=== PATIENT | female | born 1995 | race Caucasian/White ===

== ENCOUNTER 2022-10-29 08:00 | Outpatient (CLI) | payer OTHER ==
[2022-10-29 15:35] LABS: BILIRUBIN,URINE NEGATIVE (NEGATIVE); GLUCOSE, URINE (UA) NEGATIVE (NEGATIVE); KETONES,URINE (UA) NEGATIVE (NEGATIVE); LEUKOCYTE ESTERASE, URINE NEGATIVE (NEGATIVE); NITRITE,URINE NEGATIVE (NEGATIVE); OCCULT BLOOD,URINE NEGATIVE (NEGATIVE); PROTEIN,URINE NEGATIVE (NEGATIVE); UROBILINOGEN,URINE 0.2 (NORMAL) E.U./dL (NORMAL)
[2022-10-29 15:45] LABS: CLARITY,URINE CLEAR (CLEAR)
[2022-10-29 15:59] LABS: WBC,URINE 0-3 /HPF (0-5)
[2022-10-29 16:00] LABS: BACTERIA,URINE None Seen /HPF (None Seen); RBC,URINE 0-5 /HPF (0-5); SQUAMOUS EPITHELIAL CELL,UR MOD Squamous (<= Few)
== END 2022-10-29 23:59 | disposition home or self-care (01) ==
LOC: LAB 08:00
PROVIDERS: ATTEND Obstetrics & Gynecology
DX: Z34.90 Encounter for supervision of normal pregnancy, unspecified, unspecified trimester (principal)
CPT/HCPCS: 81001; 87086

== ENCOUNTER 2022-11-27 12:30 | Outpatient (CLI) | payer OTHER ==
[2022-11-27 15:31] LABS: BASOPHILS % (AUTO) 0.5 %; EOSINOPHILS # (AUTO) 0.1 10^3/uL (0.0-0.7); EOSINOPHILS % (AUTO) 0.7 %; HGB - HEMOGLOBIN 13.1 g/dL (12.0-16.0); LYMPHOCYTES % (AUTO) 23.2 %; MEAN CORPUSCULAR HGB CONC 34.5 g/dL (32.0-36.0); MEAN CORPUSCULAR VOLUME 92.9 fL (81.0-99.0); MEAN PLATELET VOLUME 10.3 fL (7.9-10.8); MONOCYTES # (AUTO) 0.8 10^3/uL (0.0-1.0); MONOCYTES % (AUTO) 9.7 %; NEUTROPHILS # (AUTO) 5.5 10^3/uL (1.5-6.6); NEUTROPHILS % (AUTO) 65.5 %; PLT - PLATELET COUNT 220 10^3/uL (130-450); RED BLOOD COUNT 4.09 10^6/uL (4.20-5.40); RED CELL DISTRIBUTION WIDTH 11.4 % (12.0-15.0); WHITE BLOOD COUNT 8.4 x10^3/uL (4.8-10.8)
[2022-11-28 08:10] LABS: VARICELLA-ZOSTER AB IGG 210 index (Immune >165)
[2022-11-29 01:07] LABS: HBsAG SCREEN Negative (Negative); HCV AB Non Reactive (Non Reactive)
[2022-11-29 05:10] LABS: HIV SCREEN 4TH GENERATION Non Reactive (Non Reactive)
[2022-11-29 06:10] LABS: RPR Non Reactive (Non Reactive)
== END 2022-11-27 12:31 | disposition home or self-care (01) ==
LOC: LAB 12:30
PROVIDERS: ATTEND Nurse Practitioner Obstetrics & Gynecology
DX: Z36.89 Encounter for other specified antenatal screening (principal)
CPT/HCPCS: 36415; 81220; 85025; 86592; 86762; 86787; 86803; 86850; 86900; 86901; 87340; 87389

== ENCOUNTER 2023-01-31 13:45 | Outpatient (CLI) | payer OTHER ==
--- NOTE | 2023-02-01 13:08 | Ultrasound Report ---
PROCEDURE: OB Detailed Eval INDICATIONS: SUPERVISION OF OUTSIDE/PRIOR DATING DATA: Last menstrual period (LMP): 09/11/2022. LMP-based estimated date of delivery (EVE): 06/18/2010 23. First dating scan (date and location): 11/07/2022 at [facility]. Estimated date of delivery (EVE) from first dating scan: 06/16/2023. The below data below was generated using the working EVE of 06/16/2023 TECHNIQUE: Real-time scanning was performed of the fetus, with image documentation and biometric measurements. COMPARISON: OB Ultrasound. 11/07/2022. FINDINGS: General: A single living intrauterine gestation is present. Presentation: Cephalic Placenta: Placental position is anterior, without previa. Amniotic fluid index: 15.3 cm; largest pocket 5.0 cm. heart rate: 147 beats per minute. Maternal cervical canal: 4.7 cm long; normal length is 2.5 cm or more. biometrics: Biparietal diameter: 20 weeks 4 days Head circumference: 20 weeks 3 days Abdominal circumference: 20 weeks 3 days Femur length: 20 weeks 4 days Estimated gestational age from initial scan: 20 weeks 4 days. Composite gestational age from present scan: 20 weeks 4 days Estimated weight and percentile: 357 g; 40.2% Measurement variability in biometric dating: +/- 10 days from 12-20 weeks gestation, +/- 2 weeks from 20-30 weeks gestation, +/- 3 weeks at 30 weeks gestation or later. Anatomic survey: Neuro: Ventricles are normal at less than 10 mm. Cisterna magna is normal at 3-11 mm. Cerebellum i s normal in size and morphology. Nuchal skin fold: Normal at less than 6 mm between 14 and 20 weeks gestational age. Face: Nose and lips, facial profile are normal. Spine: No evidence for spina bifida. Heart: 4-chambered heart is present, with normal ventricular outflow tracts. Diaphragm: Diaphragm is intact. Stomach: Left-sided stomach is present. Kidneys: No hydronephrosis. Normal is less than 5 mm in 2nd trimester, less than 7 mm in 3rd trimester. Cord: 3 vessel cord has orthotopic insertion. Bladder: Normal in size. Extremities: All 4 extremities are visualized. IMPRESSION: 1. A single living IUP with appropriate interval growth. 2. Normal anatomic survey. 3. KEREN 15.3 cm. 4. The estimated weight is 40% for gestational age. Reviewed by: Mine Bishop MD on 02/01/2023 1:07 PM PDT Approved by: Mine Bishop MD on 02/01/2023 1:07 PM PDT Station ID: [id number]
== END 2023-01-31 13:46 | disposition home or self-care (01) ==
LOC: DI 13:45
PROVIDERS: ATTEND Nurse Practitioner Obstetrics & Gynecology
DX: Z34.02 Encounter for supervision of normal first pregnancy, second trimester (principal); Z36.89 Encounter for other specified antenatal screening

== ENCOUNTER 2023-03-15 12:26 | Outpatient (CLI) | payer OTHER ==
[2023-03-15 13:42] LABS: HCT - HEMATOCRIT 29.3 % (37.0-47.0); HGB - HEMOGLOBIN 10.2 g/dL (12.0-16.0); MEAN CORPUSCULAR HEMOGLOBIN 31.6 pg (27.0-31.0); MEAN CORPUSCULAR HGB CONC 34.8 g/dL (32.0-36.0); MEAN CORPUSCULAR VOLUME 90.7 fL (81.0-99.0); MEAN PLATELET VOLUME 9.7 fL (7.9-10.8); RED BLOOD COUNT 3.23 10^6/uL (4.20-5.40); RED CELL DISTRIBUTION WIDTH 12.3 % (12.0-15.0); WHITE BLOOD COUNT 11.9 x10^3/uL (4.8-10.8)
== END 2023-03-15 12:27 | disposition home or self-care (01) ==
LOC: LAB 12:26
PROVIDERS: ATTEND Nurse Practitioner Obstetrics & Gynecology
DX: Z36.9 Encounter for antenatal screening, unspecified (principal)
CPT/HCPCS: 36415; 82950; 85027

== ENCOUNTER 2023-03-22 15:32 | Outpatient (CLI) | payer OTHER ==
[2023-03-22] MEDS ORDERED: FERRIC GLUCONATE 125 MG in SODIUM CHLORIDE 0.9% 100ML 100 ML IV ONE (16:00)
[2023-03-22 17:22] VITALS: BP 100/63
== END 2023-03-22 17:17 | disposition home or self-care (01) ==
LOC: WFO 15:32 → FBP 15:33 → WFO 17:17
PROVIDERS: ATTEND Nurse Practitioner Obstetrics & Gynecology
DX: O99.013 Anemia complicating pregnancy, third trimester (principal); Z3A.00 Weeks of gestation of pregnancy not specified
CPT/HCPCS: 96365; J2916

== ENCOUNTER 2023-04-19 11:35 | Outpatient (CLI) | payer OTHER ==
[2023-04-19 11:52] LABS: HCT - HEMATOCRIT 30.8 % (37.0-47.0); HGB - HEMOGLOBIN 10.6 g/dL (12.0-16.0); MEAN CORPUSCULAR HEMOGLOBIN 31.1 pg (27.0-31.0); MEAN CORPUSCULAR HGB CONC 34.4 g/dL (32.0-36.0); MEAN CORPUSCULAR VOLUME 90.3 fL (81.0-99.0); MEAN PLATELET VOLUME 9.8 fL (7.9-10.8); RED BLOOD COUNT 3.41 10^6/uL (4.20-5.40); RED CELL DISTRIBUTION WIDTH 12.3 % (12.0-15.0)
== END 2023-04-19 11:36 | disposition home or self-care (01) ==
LOC: LAB 11:35
PROVIDERS: ATTEND Nurse Practitioner Obstetrics & Gynecology
DX: O99.013 Anemia complicating pregnancy, third trimester (principal)
CPT/HCPCS: 36415; 85027

== ENCOUNTER 2023-06-11 03:05 | Inpatient (IN) | payer OTHER ==
[2023-06-11] MEDS ORDERED: OXYTOCIN 10 UNIT/ML VIAL IM PRN (03:12)
[2023-06-11] MEDS ORDERED: CARBOPROST TROMETHAMINE 250 MCG/ML AMP IM PRN (03:12)
[2023-06-11] MEDS ORDERED: LACTATED RINGERS 1,000 ML IV PRN (03:12)
[2023-06-11] MEDS ORDERED: OXYTOCIN/SODIUM CHLORIDE 500 ML IV PRN (03:12)
[2023-06-11] MEDS ORDERED: NIFEdipine 10 MG CAPSULE PO PRN (03:12)
[2023-06-11] MEDS ORDERED: miSOPROStoL 200 MCG TABLET BC PRN (03:12)
[2023-06-11] MEDS ORDERED: hydrALAZINE INJ 20 MG/ML VIAL IVP PRN ×2 (03:12)
[2023-06-11] MEDS ORDERED: METHYLERGONOVINE 0.2 MG/ML VIAL IM PRN (03:12)
[2023-06-11] MEDS ORDERED: lidocaine 1% 20 ML MDV ID PRN (03:12)
[2023-06-11] MEDS ORDERED: LABETALOL 20 MG/4 ML SYRINGE IVP PRN ×3 (03:12)
[2023-06-11] MEDS ORDERED: TRANEXAMIC ACID IN NACL 1,000 MG/100 ML BAG IV PRN (03:12)
[2023-06-11] MEDS ORDERED: TERBUTALINE 1 MG/ML VIAL SUBQ PRN (03:12)
[2023-06-11] MEDS ORDERED: miSOPROStoL 200 MCG TABLET PR PRN (03:12)
[2023-06-11] MEDS ORDERED: SODIUM CHLORIDE FLUSH 0.9% 10 ML SYRINGE IVP PRN (03:12)
[2023-06-11] MEDS ORDERED: fentaNYL 100 MCG/2 ML VIAL IVP PRN (03:12)
[2023-06-11] MEDS ORDERED: LACTATED RINGERS 1,000 ML IV SCH (04:00)
[2023-06-11 04:37] LABS: BASOPHILS # (AUTO) 0.1 10^3/uL (0.0-0.1); BASOPHILS % (AUTO) 0.3 %; EOSINOPHILS % (AUTO) 0.1 %; HCT - HEMATOCRIT 31.1 % (37.0-47.0); HGB - HEMOGLOBIN 10.9 g/dL (12.0-16.0); LYMPHOCYTES # (AUTO) 2.6 10^3/uL (1.5-3.5); LYMPHOCYTES % (AUTO) 17.4 %; MEAN CORPUSCULAR HEMOGLOBIN 31.4 pg (27.0-31.0); MEAN CORPUSCULAR VOLUME 89.6 fL (81.0-99.0); MEAN PLATELET VOLUME 10.5 fL (7.9-10.8); MONOCYTES # (AUTO) 1.4 10^3/uL (0.0-1.0); MONOCYTES % (AUTO) 9.2 %; NEUTROPHILS # (AUTO) 10.9 10^3/uL (1.5-6.6); NEUTROPHILS % (AUTO) 72.2 %; PLT - PLATELET COUNT 174 10^3/uL (130-450); RED BLOOD COUNT 3.47 10^6/uL (4.20-5.40); RED CELL DISTRIBUTION WIDTH 13.1 % (12.0-15.0); WHITE BLOOD COUNT 15.1 x10^3/uL (4.8-10.8)
[2023-06-11 04:46] LABS: ALBUMIN 3.7 g/dL (3.2-5.5); ALBUMIN/GLOBULIN RATIO 1.5 (1.0-2.2); BILIRUBIN,TOTAL 0.3 mg/dL (0.2-1.0); CREATININE 0.6 mg/dL (0.6-1.3); POTASSIUM 3.5 mmol/L (3.5-4.5); TOTAL PROTEIN 6.2 g/dL (6.4-8.9)
[2023-06-11] MEDS ORDERED: ROPIVACAINE 0.2% 200 MG/100 ML BAG EP ONE (07:10)
[2023-06-11] MEDS ORDERED: LIDOCAINE 2%-EPI 1:100000 20 ML MDV ONE (07:11)
--- NOTE | 2023-06-11 07:19 | HISTORY & PHYSICAL EXAMINATION ---
Admit History - Visit Reason Visit Reason: Contractions, Membranes rupture - : 1 Parity: 0 Premature: 0 Ectopic: 0 : 0 Care: positive: [facility] Risk/History: positive: None Complications This : positive: None Smoking Status: Former smoker - Mother's Labs Mother's Blood Type: positive: A Mother's RH: positive: Positive GBS: positive: Group B Step Negative Rubella Status: positive: Immune - HPI Diagnosis/Indication for NST: Other Current EDU 06/18/23 Gestation 39 Weeks and 0 Days 1 Vital Signs Temperature 36.9 C 06/11/23 04:38 Heart Rate 79 06/11/23 04:38 Respiratory Rate 20 06/11/23 04:38 Blood Pressure 118/74 06/11/23 04:38 Temperature 36.9 C 06/11/23 04:38 Heart Rate 79 06/11/23 04:38 Respiratory Rate 20 06/11/23 04:38 Blood Pressure 118/74 06/11/23 04:38 O2 Saturation If not protocol: Oxygen Flow, liters/minute - NST Procedure NST reactive. FHR baseline 120s, moderate variability, + accels, no decels Contractions palpate moderate to strong every 3-5 minutes with soft resting tone Meds/Allgy - Allergies Allergies/Adverse Reactions: Allergies Allergy/AdvReac Type Severity Reaction Status Date / Time No Known Drug Allergies Allergy Verified 03/22/23 15:38 Review of Systems - Constitutional Constitutional: denies: Fatigue, Fever, Chills, Malaise - Eyes Eyes: denies: Blurred vision, Spots in vision, Dipolpia - Cardiovascular Cariovascular: denies: Irregular heart rate, Palpitations, Chest pain, Edema - Respiratory Respiratory: denies: Cough, Wheezing, SOB at rest - Gastrointestinal Gastrointestinal: denies: Constipation, Diarrhea, Nausea, Vomiting - Genitourinary Genitourinary: denies: Dysuria - Integumentary Integumentary: denies: Rash, Pruritis - Neurological Neurological: denies: Headache - Psychiatric Psychiatric: denies: Depression, Anxiety Physical - Abdominal Exam Vital Signs: Temp Pulse Resp BP Pulse Ox O2 Flow Rate 36.9 C 79 20 118/74 06/11/23 04:38 06/11/23 04:38 06/11/23 04:38 06/11/23 04:38 Contraction Frequency (min/apart): 3-6 Contraction Intensity: positive: Moderate to strong Uterine Resting Tone: positive: Soft - Monitoring Heart Rate Baseline: 125 Strip Review: positive: Category I - Presentation Presentation: positive: Vertex - Vaginal Exam Membranes: positive: Membranes ruptured Dilation (in cm): 5 Effacement (%): 80 Station: positive: -1 Cervical Position: positive: Midposition - Speculum Exam Speculum Exam Performed: positive: No Findings: positive: Gross leak Plan for Labor - Plan For Labor I expect patient to be DC'd or transferred within 96 hours.: Yes Plan for Labor: HPI: This 28yo @ 39.0wks gestation presents to [facility] with c/o contractions and grossly ruptured membranes which occurred at 2350 on 06/10/2023 and was noted to be a large amount of clear fluid. Upon arrival cervix was 5/80/-1 and vertex with grossly ruptured membranes. She is found to contract every 3-5 minutes with soft resting tone. She has been a patient of [facility] for the duration of her which has remained uncomplicated with the exception of anemia that was treated with IV iron infusion and oral iron PO daily. In addition she was noted to have mildly elevated blood pressure with intermittent headache at 38wks gestation. At her follow up blood pressure check 24 hours later her blood pressure was WNL and her PIH labs were negative and since her elevated blood pressure once it has remained WNL. She will be admitted to [facility] for expectant management. She is supported by her partner Topher. 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 SAB x 0. Last pap 2020 WNL, no hx abnormal. Denies history of gonorrhea, chlamydia, genital herpes, oral herpes or any other STI. Sexual partner does NOT have HSV (oral or genital). Medical Hx: Anxiety Surgical Hx: None Social Hx: Monogamous with male partner Topher. He is active duty [place] and just returned home from deployment. Stopped drinking alcohol due to . Denies current use of tobacco, marijuana or other recreational drugs. Reports that she is safe in current relationship. Family Hx: Denies family history of congenital anomalies or chromosomal abnormalities. Her partner has a strong family history of cystic fibrosis and his mom has cystic fibrosis. She believes her partner is a carrier of the gene but she herself has never been tested. Allergies: NKDA Medications: PNV, FeSO4 course: A positive, antibody negative Rubella immune, varicella immune Initial U/S @ 8.3wks c/w LMP dating Genetic screening: negative CF carrier - negative FAS WNL. Anterior placenta, no previa. Size c/w dating (EFW 40.2%tile). 3VC. Glucola 137 COVID-19 vaccine - x 2, no booster Tdap 04/04/2023 GBS negative Physical exam: Normocephalic, atraumatic Heart RRR w/o M/G/R Lungs CTAB abdomen gravid, soft, non-tender EFW 3300g FHR baseline 130s, moderate variability, + accels, no decels Contractions palpate moderate to strong every 3-5 minutes with soft resting tone SVE 5/80/-1 and vertex. Grossly ruptured membranes, clear fluid Bilateral LE's no edema. Mood is good. Assessment: 28yo @ 39.0wks gestation by LMP c/w 8.3wk U/S Early labor FHR Category I GBS negative Plan: Admit to [facility] for expectant management. Continuous monitoring. Jacuzzi PRN. Nitrous oxide PRN. Epidural per maternal request. Anticipate .
--- NOTE | 2023-06-11 07:39 | PROVIDER PROGRESS NOTE ---
Labor Progress Note - Uterine Monitoring Uterine Monitoring Mode: positive: External toco Contraction Frequency (min/apart): 3-6 Contraction Intensity: positive: Moderate to strong Uterine Resting Tone: positive: Soft - Monitoring Monitor Mode: positive: External ultrasound Heart Rate Baseline: 140 Heart Rate Variability: positive: Moderate (6-25 bmp) Accelerations: positive: Present, 15x15 Decelerations: positive: None Strip Review: positive: Category I - Labor Progress Note Labor Progress Note/Additional Text: S: Breathing through contractions and using nitrous oxide for pain management. She has requested an epidural and anesthesia is present at the bedside for epidural placement. She is coping well and her mood is good. Her partner Topher is supportive at the bedside. O: FHR baseline 140s, moderate variability, + accels, no decels Contractions palpate moderate to strong every 3-6 minutes with soft resting tone SVE deferred BP normotensive A: 28yo @ 39.0wks gestation by LMP c/w 8.3wk U/S Active labor FHR Category I GBS negative P: Continue expectant management. Repeat SVE once comfortable with epidural. Continuous monitoring. Maintain epidural for pain management. Encouraged rotation in bed on peanut ball once comfortable with epidural. Pt agrees to above plan and denies further questions or concerns at this time. Anticipate .
[2023-06-11] MEDS ORDERED: NALOXONE 0.4 MG/ML VIAL IVP PRN (07:46)
[2023-06-11] MEDS ORDERED: ROPIVACAINE 0.2% 200 MG/100 ML BAG EP PRN (07:46)
[2023-06-11] MEDS ORDERED: METOCLOPRAMIDE 10 MG/2 ML VIAL IVP PRN (07:46)
[2023-06-11] MEDS ORDERED: diphenhydrAMINE INJ 50 MG/ML VIAL IVP PRN (07:46)
[2023-06-11] MEDS ORDERED: ONDANSETRON 4 MG/2 ML VIAL IVP PRN (07:46)
[2023-06-11] MEDS ORDERED: NALBUPHINE 10 MG/ML AMP IVP PRN (07:46)
[2023-06-11] MEDS ORDERED: ePHEDrine 50 MG/ML VIAL IVP PRN (07:46)
--- NOTE | 2023-06-11 07:48 | ANESTHESIA ---
Pre-Anesthesia VS, & Labs - Diagnosis active labor - Procedure labor epidural Vital Signs: Temp Pulse Resp BP Pulse Ox O2 Flow Rate 36.9 C 79 20 118/74 06/11/23 04:38 06/11/23 04:38 06/11/23 04:38 06/11/23 04:38 Height: 5 ft 4 in Weight (kg): 63.503 kg Body Mass Index: 24.0 BMI Classification: Normal - NPO Other - Is Patient ?: Yes - Lab Results Current Lab Results: Laboratory Tests 06/11/23 04:15: Sodium 134 L, Potassium 3.5, Chloride 108, Carbon Dioxide 19 L, Anion Gap 7.0, BUN 10, Creatinine 0.6, Estimated GFR (MDRD) 120, Glucose 80, Calcium 9.0, Total Bilirubin 0.3, AST 12, ALT 8 L, Alkaline Phosphatase 192 H, Total Protein 6.2 L, Albumin 3.7, Globulin 2.5, Albumin/Globulin Ratio 1.5 06/11/23 04:15: WBC 15.1 H, RBC 3.47 L, Hgb 10.9 L, Hct 31.1 L, MCV 89.6, MCH 31.4 H, MCHC 35.0, RDW 13.1, Plt Count 174, MPV 10.5, Neut # (Auto) 10.9 H, Lymph # (Auto) 2.6, [place] # (Auto) 1.4 H, Eos # (Auto) 0.0, Baso # (Auto) 0.1, Absolute Nucleated RBC 0.00, Nucleated RBC % 0.0 06/11/23 04:15: Blood Type A POSITIVE, Antibody Screen NEGATIVE Fish Bones: 06/11/23 04:15 06/11/23 04:15 Home Medications and Allergies Active Medications Carboprost Tromethamine (Carboprost Tromethamine 250 Mcg/Ml Amp) 250 mcg IM .ONCE PRN PRN Reason: Hemorrhage Fentanyl (Fentanyl 100 Mcg/2 Ml Vial) 50 mcg IVP Q1H PRN PRN Reason: Severe Pain (score 7-10) Hydralazine HCl (Hydralazine Inj 20 Mg/Ml Vial) 5 - 10 mg IVP Q20M PRN; Protocol PRN Reason: SBP> or= 160 OR DBP> or= 110 Hydralazine HCl (Hydralazine Inj 20 Mg/Ml Vial) 10 mg IVP .ONCE PRN; Protocol PRN Reason: SBP> or= 160 OR DBP> or= 110 Lactated Ringer's (Lr) 500 mls @ 999 mls/hr IV PRN PRN PRN Reason: uterine resuscitation Oxytocin/Sodium Chloride (Pitocin/Sodium Chloride) 500 mls @ 999 mls/hr IV PRN PRN; Protocol PRN Reason: POST- HEMORR PREVENTION Tranexamic Acid (Tranexamic 1,000 Mg/100ml-Nacl) 1,000 mg in 100 mls @ 600 mls/hr IV Q30M PRN PRN Reason: EBL >1200mL and within 3hr Lactated Ringer's (Lr) 1,000 mls @ 125 mls/hr IV .Q8H MONICA Labetalol HCl (Labetalol 20 Mg/4 Ml Syringe) 20 - 80 mg IVP Q10M PRN; Protocol PRN Reason: SBP> or= 160 OR DBP> or= 110 Labetalol HCl (Labetalol 20 Mg/4 Ml Syringe) 20 mg IVP .ONCE PRN; Protocol PRN Reason: SBP> or= 160 OR DBP> or= 110 Labetalol HCl (Labetalol 20 Mg/4 Ml Syringe) 20 - 40 mg IVP Q10M PRN; Protocol PRN Reason: SBP> or= 160 OR DBP> or= 110 Lidocaine HCl (Lidocaine 1% 20 Ml Mdv) 20 ml ID .ONCE PRN PRN Reason: PERINEAL REPAIR Stop: 06/14/23 03:12 Methylergonovine Maleate (Methylergonovine 0.2 Mg/Ml Vial) 0.2 mg IM .ONCE PRN PRN Reason: Hemorrhage Misoprostol (Misoprostol 200 Mcg Tablet) 600 mcg BC .ONCE PRN PRN Reason: Hemorrhage Misoprostol (Misoprostol 200 Mcg Tablet) 800 mcg MT .ONCE PRN PRN Reason: Hemorrhage Nifedipine (Nifedipine 10 Mg Capsule) 10 - 20 mg PO Q20M PRN; Protocol PRN Reason: SBP> or= 160 OR DBP> or= 110 Oxytocin (Oxytocin 10 Unit/Ml Vial) 10 unit IM .ONCE PRN PRN Reason: Step One if no IV access. Sodium Chloride (Sodium Chloride Flush 0.9% 10 Ml Syringe) 10 ml IVP PRN PRN PRN Reason: NEEDED PER PROVIDER ORDERS Terbutaline Sulfate (Terbutaline 1 Mg/Ml Vial) 0.25 mg SUBQ .ONCE PRN PRN Reason: Tachystole Allergies/Adverse Reactions: Allergies Allergy/AdvReac Type Severity Reaction Status Date / Time No Known Drug Allergies Allergy Verified 03/22/23 15:38 Anes History & Medical History - Anesthetic History Anesthesia Complications: reports: No previous complications Family history of Anesthesia Complications: Denies Family history of Malignant Hyperthermia: Denies - Medical History Cardiovascular: reports: None Pulmonary: reports: None Smoking Status: Former smoker - Obstetrical History : 1 Parity: 0 Events: reports: None Complications: reports: None Exam General: Alert, Oriented x3, Cooperative Dental: WNL Mouth Openin Fingerbreadth Neck Mobility: Normal Mallampati classification: I Thyromental Distance: 4-6 cm Respiratory: Lungs clear Cardiovascular: Regular rate Plan Anesthesia Type: Epidural Consent for Procedure(s) Verified and Reviewed: Yes Code Status: Attempt Resuscitation ASA classification: 2-Mild systemic disease Is this case an emergency?: No
--- NOTE | 2023-06-11 11:05 | DELIVERY NOTE ---
Delivery Note - Labor Labor: positive: Spontaneous - Delivery Method Delivery Method: positive: Spontaneous vaginal delivery - Presentation Presentation: positive: Vertex, MATTHIEU - left occiput anterior - Nuchal Cord Nuchal Cord: positive: None - Amniotic Fluid Description Amniotic Fluid Description: positive: Clear - Episiotomy Type Episiotomy Type: positive: None - Laceration Laceration: positive: 1st degree, Vaginal - Suture Suture Type: positive: Vicryl Suture Size: positive: 3-0 - Delivery Outcome Delivery Outcome: positive: Livebirth - [place]: positive: Placed in direct skin contact with mother, Bulb syringe, Stimulated, Warmed, [place] used [place] sex: positive: Male - Cord Cord: positive: 3 vessels - Placenta Placenta: positive: Intact, Spontaneous - Estimated Blood Loss Estimated Blood Loss (in cc): 300 - Post Delivery Events Post Delivery Events: positive: No post delivery events - Delivery Comments (Free Text/Narrative) Delivery Comments (Free Text/Narrative): Labor: This 28yo @ 39.0wks gestation by LMP c/w 8.3wk U/S presents to [facility] on 06/11/2023 in active labor. Cervix was 5/80/-1 and vertex with grossly ruptured membranes and clear amniotic fluid. FHR pattern demonstrated Category I pattern throughout labor. Normal labor course. Epidural placed per maternal request. Pt progressed to c/c/+1 @ 0956 with onset of active pushing at 1012. : Normal SVB of viable male on 06/11/2023 at 1025. No nuchal cord. The was placed on maternal abdomen, stimulated, dried, and placed skin to skin. 's were 8/9 at 1 and 5 minutes respectively. Pitocin administered via IV for hemostasis. The umbilical cord was allowed to stop pulsating at which time it was doubly clamped by CNM and cut by FOB. Cord blood was obtained. 3VC. Fundal massage and gentle cord traction applied for active management of the third stage. Placenta delivered spontaneously and intact at 1030. EBL 300mL. Fourth stage: Uterine fundus firm and there is no excessive bleeding. The perineum, vagina, and cervix were inspected and found to have 1st degree perineal laceration which was repaired using a 3-[address]-1 needle, in standard fashion and under sterile conditions. Tissues well approximated. initiated. Family bonding well. Both mother and baby were left in stable condition.
[2023-06-11] MEDS ORDERED: HYDROCORTISONE 1% CREAM 28 GM TUBE PR PRN (11:14)
[2023-06-11] MEDS ORDERED: WITCH HAZEL/GLYCERIN 1 PAD TOP PRN (11:14)
[2023-06-11] MEDS: IBUPROFEN 800 MG TABLET PO SCH ×3 (12:38→23:59)
[2023-06-11] MEDS: ACETAMINOPHEN 500 MG TABLET PO SCH ×2 (12:39→20:35)
[2023-06-11] MEDS: DOCUSATE SODIUM 100 MG CAPSULE PO SCH (20:35)
[2023-06-12] MEDS: ACETAMINOPHEN 500 MG TABLET PO SCH ×2 (05:37→05:49)
[2023-06-12] MEDS: IBUPROFEN 800 MG TABLET PO SCH ×2 (05:48→12:50)
[2023-06-12 10:33] VITALS: BP 107/61; O2SAT 100
--- NOTE | 2023-06-12 12:11 | Discharge Plan ---
Discharge Plan Problem Reviewed?: Yes Disposition: Home, Self Care Condition: Good Diet: Regular Activity Restrictions: No Restrictions Shower Restrictions: No Driving Restrictions: No Weight Bearing: Full Weight Instruction Topics: Vaginal After No Smoking: If you smoke, Please STOP! Call for help. Follow-up with: Nat Borges CNM, ARNP [Provider Admit Priv/Credential] - 1 Week
--- NOTE | 2023-06-12 12:16 | DISCHARGE SUMMARY ---
Discharge Summary Condition at Discharge: Good Discharge Disposition: 01 Home, Self Care - HOSPITAL COURSE Hospital Course: Date of Admission: 06/11/2023 Date of Discharge: 06/12/2023 Diagnosis on Admission: 1. 28yo @ 39.0wks gestation by LMP c/w 8.3wk U/S 2. Early labor 3. FHR Category I 4. GBS negative Diagnosis on Discharge: 1. 28yo PPD#1 s/p TSVB viable male 2. 3. Normal recover Brief History: She is a patient of [facility] [place] who presented on 06/11/2023 with c/o contractions and vaginal leakage of clear fluid. She was noted to be 5/80/-1 and vertex with grossly ruptured membranes and clear amniotic fluid. Epidural wa s placed per maternal request. She progressed spontaneously to deliver a viable male on 06/11/2023 @ 1025. First degree perineal laceration was repaired using a 3-[address]-1 needle in standard fashion and under sterile conditions. Apgars were 8/9 at 1 and 5 minutes respectively. EBL 300mL. She has been doing well in her course. She is ambulating and tolerating a regular diet. She is urinating without difficulty and her lochia is normal. Her pain is well controlled with oral medications. She is bonding well with her baby and she is pumping and providing pumped colostrum to her baby without difficulty. She will be discharged home today on day #1 with instructions to continue taking her vitamin while , and to continue taking ibuprofen and tylenol over the counter as needed for pain management. She intends to follow up with myself in 1 week for routine visit or sooner if needed. She has been given precautions to call if she has any worsening fevers, chills, abdominal pain, increased vaginal bleeding or foul smelling vaginal lochia. Physical exam: Normocephalic, atraumatic. Heart RRR w/o M/G/R, lungs CTAB, abdomen soft and nontender with fundus firm at U. Perineum intact, light lochia rubra. Bilateral LE's no edema. Mood is good. - ALLERGIES Allergies/Adverse Reactions: Allergies Allergy/AdvReac Type Severity Reaction Status Date / Time No Known Drug Allergies Allergy Verified 03/22/23 15:38 - LABS Result Diagrams: 06/11/23 04:15 06/11/23 04:15
[2023-06-12] MEDS: DOCUSATE SODIUM 100 MG CAPSULE PO SCH (12:50)
--- NOTE | 2023-06-12 14:42 | Labor Flowsheet ---
Labor Flowsheet Datetime Report Generated by CPN: 06/12/2023 14:42 Datetime: 06/12/2023 12:43 VITAL SIGNS NBP Sys/Светлана/Mean (mmHg): 124 : 66 : 80 Pulse: 73 Datetime: 06/11/2023 12:40 Stage of : Recovery Datetime: 06/11/2023 12:20 PAIN Pain Scale: 3 Pain Presence: Constant Pain Type: Ache Pain Location: Perineum Pain Relief Measures: Pain Medication Given; Comfort Measures Datetime: 06/11/2023 12:15 Epidural Procedure Other: Cath Removed; Cath Intact Datetime: 06/11/2023 11:38 Temperature (C): 36.6 Datetime: 06/11/2023 10:42 COMMUNICATION Communication Comments: delivery count complete and correct Datetime: 06/11/2023 10:36 Membranes Ruptured Date/Time: 06/10/2023 23:45 Amniotic Fluid Odor: Normal Datetime: 06/11/2023 10:31 LaborFlag: Labor Datetime: 06/11/2023 10:29 Patient Care Comments: placenta Datetime: 06/11/2023 10:15 UTERINE ACTIVITY Monitor Mode: External Frequency (min): 2-4 Quality: Strong Duration (sec): 50-80 Pattern: Normal: <= 5 Contractions in 10 Minutes ASSESSMENT A Monitor Mode: External US FHR Baseline Rate : 125 Variability: Moderate 6-25 bpm Accelerations: 15X15 Decelerations: Variable Category: Category II Datetime: 06/11/2023 10:10 I/O Interventions: Schultz Discontinued Datetime: 06/11/2023 10:00 Resting Tone (Palpate): Relaxed Datetime: 06/11/2023 09:56 VAGINAL EXAM Dilatation (cm): 10.0 Effacement (%): 100 Station: -2 Exam by: RN Mireya Datetime: 06/11/2023 09:34 Comments: RN at bedside, EFM adjusted Datetime: 06/11/2023 08:43 Patient Position/Activity: Left Extreme Datetime: 06/11/2023 07:50 SpO2 (%): 100 Datetime: 06/11/2023 07:48 Membrane Comments: forebag ruptured Datetime: 06/11/2023 07:45 Temperature Route: Oral Datetime: 06/11/2023 07:42 Anesthesia Comments: RESIDENTIAL CARE OFFICER Pan left room Datetime: 06/11/2023 07:23 Epidural Procedure: Test Dose Datetime: 06/11/2023 07:13 FHR Baseline Changes: Return to Previous Baseline Datetime: 06/11/2023 07:12 PROCEDURE TIME OUT Procedure Verify: Correct Patient Identity; Correct Side and Site are Marked; Accurate Procedure Co nsent Form; Agreement on Procedure to be Done; Correct Patient Position Datetime: 06/11/2023 07:11 PATIENT CARE IV/Blood Work: IV Bolus Started Datetime: 06/11/2023 07:10 ANESTHESIA Epidural Positioning: Sitting Datetime: 06/11/2023 06:30 Pain Goal: 7 Pain Coping: Breathing Through Contractions Pain Assessment Comments: Using nitrous oxide with good effect/increased comfort and coping Comfort Measures: Breathing/Relaxation; Coaching; Back Rub Given; Family Support Datetime: 06/11/2023 06:19 MEDICATIONS Medication Comments: Nitrous oxide begun for patient comfort Datetime: 06/11/2023 06:00 Vaginal Bleeding: Normal Show Cervix, Consistency: Soft Cervix, Position: Midposition Datetime: 06/11/2023 04:30 Contraction Comments: coupling of UCs noted Datetime: 06/11/2023 03:21 Respirations: 20 Membrane Status: Ruptured Membranes Rupture Method: Spontaneous Amniotic Fluid Color: Clear Amniotic Fluid Amount: Large MATERNAL ASSESSMENT Level of Consciousness: Alert DTR's/Clonus: DTRs 2+; No Clonus Headache: Denies Breath Sounds, Left: Clear and Equal Breath Sounds, Right: Clear and Equal Nausea/Vomiting: Denies RUQ Epigastric Pain: Denies Oxygen Method: Room Air TEACHING Instructional Method: Verbal; Written; Patient Instructed; Family/Support Person Instructed; Verbal ized Understanding Plan of Care: Plan of Care Discussed; Vaginal Delivery; Labor; Gestational Hypertension/Preeclampsi a/Eclampsia Unit Routine: [place] to Room; Call [place]; Bed; Visiting Policy; Waiting Areas; Security; Phon e/Cell Phone Use; Photography; Unit Personnel; Handwashing; Flu/Illness Precautions; Monitoring ; IV Pumps; Safety/Fall Risk Prevention; Diet/Nutrition Services; Bathroom Privileges; Routine Time O uts; Medications Labor/Induction: Labor Stages; Cervical Ripening; Augmentation; Induction; Interventions; Act ivity
== END 2023-06-12 14:30 | disposition home or self-care (01) | DRG 807 ==
LOC: WFO 03:05 → FBP 03:07 → WFO 03:14 → FBP 03:15
PROVIDERS: ADMIT Nurse Practitioner Obstetrics & Gynecology; ATTEND Nurse Practitioner Obstetrics & Gynecology
PROC: 0HQ9XZZ Repair Perineum Skin, External Approach (ICD-10-PCS; principal; 2023-06-11)
PROC: 10E0XZZ Delivery of Products of Conception, External Approach (ICD-10-PCS; 2023-06-11)
DX: O70.0 First degree perineal laceration during delivery (principal); Z37.0 Single live birth; Z3A.39 39 weeks gestation of pregnancy; Z87.891 Personal history of nicotine dependence
CPT/HCPCS: 80053; 85025; 86850; 86900; 86901; A9270; J7120